=== PATIENT | female | born 1970 | race Caucasian/White ===

== ENCOUNTER → 2024-02-08 10:58 | Outpatient (REF) | payer BC, SELFPAY | LOC: HWRCS 10:58 | PROVIDERS: ATTENDING PHYSICIAN Nurse Practitioner Adult Health | DX: I51.7 Cardiomegaly (principal) | CPT/HCPCS: 93306 ==

== ENCOUNTER 2024-02-25 15:59 | Emergency (ER) | payer BC, SELFPAY ==
[2024-02-25] VITALS (25 sets, daily range): BP systolic 109–145; BP diastolic 57–91; BMI 32.4
--- NOTE | 2024-02-25 18:53 | ED.GENMED ---
History of Present Illness
General
Chief Complaint: Musculo-Skeletal Complaint
Source: patient
Exam Limitations: none
Time Seen by Provider: 02/25/24 18:43
Travel History
Have you had any contact with someone who has COVID-19?: No
Do you have any symptoms of coronavirus? Fever > 100 degrees, chills, cough, shortness of breath, sore throat, loss of taste or smell, muscle aches, or headache?: No
History of Present Illness
History of Present Illness:
Patient tripped and fell. Injury to the left elbow. No head injury neck injury or other complaints. Did hit her left knee but that has minimal pain.
Past History
Past History
ED Past Medical History: Asthma
ED Past Surgical History: and Orthopedic
Social History
Living: with family
Review of Systems
Review of Systems
All Other Systems: Not applicable
Respiratory: Reports no symptoms
Cardiac: Reports no symptoms
Phy Exam
Physical Exam
Physical Exam:
GENERAL: Alert and oriented in no apparent distress. Normocephalic atraumatic
EYE: Orbits normal.
NECK: Supple, nontender
ENT: Pharynx without erythema. Airway clear.
CARDIAC: Regular rate and rhythm without any obvious murmurs.
LUNGS: Clear breath sounds,normal. No chest wall tenderness
ABDOMEN: Soft, without focal tenderness or distention
NEUROLOGICAL: Alert and oriented , grossly non-focal
SKIN: Warm and dry, no rash or lesion, no discoloration, skin intact.
MUSCULOSKELETAL: Swelling and deformity to the left elbow. Good distal pulses and color. Minimal tenderness to the left shoulder. No deformity. All other extremities negative except for mild tenderness over the left patella. Able to straight
leg raise.
PSYCH: Normal and appropriate interaction.
Course
Orders/Labs/Results
Orders:
Orders
02/25/24 16:04
Humerus, Left 2 Views [CR Humerus - Left Min 2 Views*] Urgent
Comment:
Reason For Exam: pain, trauma
02/25/24 16:05
CR Elbow - Left Min 2 View Urgent
Reason For Exam: pain, trauma
02/25/24 18:54
IV Insert/Care/Rem.- Treatment PRN
0.9% Sodium Chloride 500 ml [Nss] 500 ml IV BOLUS
Fentanyl Citrate/Pf [Sublimaze] 50 mcg IV NOW STA
02/25/24 19:39
Propofol [Diprivan] 20 ml .ROUTE .STK-MED
02/25/24 20:07
CR Elbow - Left Min 2 View Urgent
Reason For Exam: post reduction
02/25/24 20:17
Ketorolac [Toradol] 15 mg IV NOW STA
Vital Signs
Initial and Last Documented VS:
Initial Vital Signs
Temp Pulse Resp Pulse Ox
98.1 F 70 18 99
02/25/24 16:02 02/25/24 16:02 02/25/24 16:02 02/25/24 16:02
Last Documented Vital Signs
Temp Pulse Resp BP Pulse Ox
98.9 F 70 16 119/71 96
02/25/24 20:45 02/25/24 22:15 02/25/24 22:15 02/25/24 22:00 02/25/24 22:00
Procedures
Moderate Sedation
ASA Risk Score: Class II
Chart and allergies reviewed: Yes
Consent for anesthesia obtained: Yes
Time out completed (validating right patient & procedure): Yes
History of difficult intubation: No
Airway free of obstruction: Yes
Patient has a gag reflex: Yes
Patient is able to open mouth: Yes
Patient has no dentures: Yes
Patient has no loose teeth: Yes
Medication administered by Provider during Moderate Sedation: IV Propofol (mg)
Total dose administered: 100
Time drug administered: 20:04
Start Time: 20:04
Stop Time: 20:15
Joint/Fracture Reduction
Left Elbow:
Indication for procedure:: Left elbow dislocation
Procedure completed by: Myself/physicians podiatry assistant
Consent form signed: Yes
Joint reduced: with anesthesia sedation (Moderate sedation)
Anesthesia/sedation: Moderate sedation
Injury was: closed
Further treatement: needs re-check only
Post reduction exam: stable
Capillary Refill: normal
Normal distal neurovascular exam?: Yes
*Critical Care Note
Total Time (30-74mins, 75-104mins- exclusive of procedures): Not Applicable
Update Note
Update Note:
Posterior splint was placed without difficulty. Repeat x-ray small chip fracture of the radius. Reports were sent to orthopedics.
2211... Patient doing well. Discharged to follow-up
ED Attending Note
-
Portions of this chart may have been created with voice recognition software.� Occasional wrong word or��sound alike� substitutions may have occurred due to the inherent limitations of voice recognition software.
Discharge Plan
Departure
Patient Disposition: Home (Routine Discharge)
Date of Disposition: 02/25/24
Time of Disposition: 22:13
Patient with high blood pressure during this ER visit?: No
Discharge Problem:
Left elbow dislocation, Left knee contusion, Chip fracture radial head left
Instructions: Elbow Fracture, Adult ED, MODERATE SEDATION ADULT
Prescriptions:
New
hydrocodone-acetaminophen 5-300 mg tablet
1 tab PO Q6H PRN (Reason: Pain) Qty: 14 0RF
No Action
pediatric [id number] [Multi-Vitamins with Iron] 1 EACH tablet,chewable
1 ea PO
albuterol sulfate 1 PUFF HFA aerosol inhaler
1 puff inhalation R Q4HPRN PRN (Reason: sob)
loratadine 10 MG capsule
10 mg PO DAILY
L.acidoph, paracasei,B. lactis 1 EACH capsule
1 ea PO DAILY
dupilumab [Dupixent Syringe] 300 MG/2 ML syringe
300 mg SQ
Dulera 200 mcg/5 mcg Inhaler
2 puff PO DAILY
prednisone 10 mg Tablet
See Rx Instructions .ROUTE .COMPLEX Qty: 30 0RF
Rx Instructions:
Take By Mouth:
40 mg daily x3 days, 30 mg daily x3 days,
20 mg daily x3 days, 10 mg daily x3 days.
diazepam [Valium] 5 mg tablet
5 mg PO TID PRN (Reason: muscle spasm) Qty: 10 0RF
Referrals:
Amadeo Mike MD [Active] - Follow up in 2-3 days
Lin Marina CRNP [Family Provider] -
Activity Restrictions/Additional Instructions:
We do not have instructions specifically for elbow dislocation. I gave you the fracture instructions.
Interventions
Interventions:
*Risk Screen - Suicide Last Done: 02/25/24 18:58
*General Assessment Last Done: 02/25/24 18:58
*Neglect/Abuse Screening Last Done: 02/25/24 18:58
ED- Fall Risk Assessment Last Done: 02/25/24 18:58
*ED COVID-19 Vaccine History Last Done: 02/25/24 18:23
*Nursing Disposition Last Done: 02/25/24 22:28
ED-Musculoskeletal Assessment Last Done: 02/25/24 18:58
Discharge Date and Time
Discharge Date/Time: 02/25/24 22:29
Print Language: AUSTRALIAN
[2024-02-25] MEDS: SUBLIMAZE 50 MCG IV (19:07)
[2024-02-25] MEDS: NSS 500 IV (19:08)
[2024-02-25] MEDS: TORADOL 15 MG IV (20:24)
== END 2024-02-25 22:29 | disposition home or self-care (01) ==
LOC: EMR 15:59
PROVIDERS: EMERGENCY PHYSICIAN Emergency Medicine; FAMILY PHYSICIAN Nurse Practitioner Adult Health
DX: S53.125A Posterior dislocation of left ulnohumeral joint, initial encounter (principal); S80.02XA Contusion of left knee, initial encounter; S52.122A Displaced fracture of head of left radius, initial encounter for closed fracture; W01.0XXA Fall on same level from slipping, tripping and stumbling without subsequent striking against object, initial encounter; J45.909 Unspecified asthma, uncomplicated
CPT/HCPCS: 99284; 24600; 99152; 96374; 96375; 96361; 73060; 73070

== ENCOUNTER → 2024-12-19 10:21 | Outpatient (REF) | payer BC, SELFPAY | LOC: HWRAD 10:21 | PROVIDERS: ATTENDING PHYSICIAN Nurse Practitioner Adult Health | DX: J22 Unspecified acute lower respiratory infection (principal) | CPT/HCPCS: 71046 ==

== ENCOUNTER → 2025-10-21 17:01 | Outpatient (REF) | payer BC, SELFPAY | LOC: RAD 17:01 | PROVIDERS: ATTENDING PHYSICIAN Nurse Practitioner Adult Health | DX: E06.3 Autoimmune thyroiditis (principal) | CPT/HCPCS: 76536 ==